=== PATIENT | male | born 1980 | race Caucasian/White ===

== ENCOUNTER 2016-04-28 16:52 | Emergency (ER) | payer OTHER ==
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
--- NOTE | 2016-04-29 02:45 | ED ORDER SUMMARY ---
..... Patient: LEENA SOLIS OrderSheet [facility] VisitID: [id number] [place] [address] 35y, M Registration Date/Time: 04/28/2016 ORDER SHEET Weight: 90.7 kg (estimated) Allergies: No Known Drug Allergy GENERAL ORDERS: CBC w Diff Urgent (17:04 04/28/2016 Lauro SALDAÑA) (Ack 17:13 Harrison) (17:16 NHouse ER Tech1) CMP Urgent (17:04 04/28/2016 Lauro SALDAÑA) (Ack 17:13 Harrison) (17:16 NHouse ER Tech1) UA-Culture if indicated Urgent (17:04 04/28/2016 Lauro SALDAÑA) (Ack 17:13 Harrison) (17:30 NHouse ER Tech1) Amylase Urgent (17:04 04/28/2016 Lauro SALDAÑA) (Ack 17:13 Harrison) (17:16 NHouse ER Tech1) Lipase Urgent (17:04 04/28/2016 Lauro SALDAÑA) (Ack 17:13 Harrison) (17:16 NHouse ER Tech1) Urine Drug Screen Urgent (17:04 04/28/2016 Lauro SALDAÑA) (Ack 17:13 Harrison) (17:30 NHouse ER Tech1) Salicylate Level Urgent (17:04 04/28/2016 Lauro SALDAÑA) (Ack 17:13 Harrison) (17:16 NHouse ER Tech1) Acetaminophen Level Urgent (17:04 04/28/2016 Lauro SALDAÑA) (Ack 17:14 Harrison) (17:16 NHouse ER Tech1) Suicide Precautions (17:04 04/28/2016 Lauro SALDAÑA) (17:05 Alex R.N.) Ethyl Alcohol Urgent (17:05 04/28/2016 Lauro SALDAÑA) (Ack 17:14 Harrison) (17:16 NHouse ER Tech1) MEDICATION ORDERS: IV FLUIDS: ORDER SHEET NOTES: [Electronically signed by Shashi Egan R.N. (02:58 04/29/2016)] [Electronically signed by Dino Verde Dr. (07:48 04/29/2016)] [Electronically locked/signed by Shashi Egan R.N. (02:58 04/29/2016)]
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
--- NOTE | 2016-04-29 02:45 | ED ORDER SUMMARY ---
..... Patient: LEENA SOLIS OrderSheet [facility] VisitID: [id number] [place] [address] 35y, M Registration Date/Time: 04/28/2016 ORDER SHEET Weight: 90.7 kg (estimated) Allergies: No Known Drug Allergy GENERAL ORDERS: CBC w Diff Urgent (17:04 04/28/2016 Lauro SALDAÑA) (Ack 17:13 Harrison) (17:16 NHouse ER Tech1) CMP Urgent (17:04 04/28/2016 Lauro SALDAÑA) (Ack 17:13 Harrison) (17:16 NHouse ER Tech1) UA-Culture if indicated Urgent (17:04 04/28/2016 Lauro SALDAÑA) (Ack 17:13 Harrison) (17:30 NHouse ER Tech1) Amylase Urgent (17:04 04/28/2016 Lauro SALDAÑA) (Ack 17:13 Harrison) (17:16 NHouse ER Tech1) Lipase Urgent (17:04 04/28/2016 Lauro SALDAÑA) (Ack 17:13 Harrison) (17:16 NHouse ER Tech1) Urine Drug Screen Urgent (17:04 04/28/2016 Lauro SALDAÑA) (Ack 17:13 Harrison) (17:30 NHouse ER Tech1) Salicylate Level Urgent (17:04 04/28/2016 Lauro SALDAÑA) (Ack 17:13 Harrison) (17:16 NHouse ER Tech1) Acetaminophen Level Urgent (17:04 04/28/2016 Lauro SALDAÑA) (Ack 17:14 Harrison) (17:16 NHouse ER Tech1) Suicide Precautions (17:04 04/28/2016 Lauro SALDAÑA) (17:05 Alex R.N.) Ethyl Alcohol Urgent (17:05 04/28/2016 Lauro SALDAÑA) (Ack 17:14 Harrison) (17:16 NHouse ER Tech1) MEDICATION ORDERS: IV FLUIDS: ORDER SHEET NOTES: [Electronically signed by Shashi Egan R.N. (02:58 04/29/2016)] [Electronically signed by Dino Verde Dr. (07:48 04/29/2016)] [Electronically locked/signed by Shashi Egan R.N. (02:58 04/29/2016)]
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
--- NOTE | 2016-04-29 07:49 | ED MED RECONCILIATION SUMMARY ---
Patient: LEENA SOLIS Medication Reconciliation Report [facility] VisitID: [id number] [place] [place] [address] 35y, M Registration Date/Time: 04/28/2016 Weight: 90.7 kg Height/Length: 72 in. BMI: 27.1 ALLERGIES: No Known Drug Allergy The patient's Home Medications are listed below: THE FOLLOWING MEDICATIONS NEED TO BE RECONCILED: Xanax Oral The source(s) of the original Home Medication information: patient The following Medications were given to the patient in the Emergency Department: None. The following Medications were prescribed to the patient: None.
--- NOTE | 2016-04-29 07:49 | ED MAR SUMMARY ---
..... Medication Administration Record [facility] [address] [place], [place] [id number] Patient: LEENA SOLIS Visit ID: [id number] 35y, M Weight: 90.7 kg Height/Length: 72 in BMI: 27.1 ALLERGIES: No Known Drug Allergy
--- NOTE | 2016-04-29 07:49 | ED MAR SUMMARY ---
..... Medication Administration Record [facility] [address] [place], [place] [id number] Patient: LEENA SOLIS Visit ID: [id number] 35y, M Weight: 90.7 kg Height/Length: 72 in BMI: 27.1 ALLERGIES: No Known Drug Allergy
--- NOTE | 2016-04-29 07:49 | ED DISCHARGE INSTRUCTIONS ---
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 Occasional substance abuse- marijuana, methamphetamines with drug induced mood disorder. INSTRUCTIONS Follow-up: Follow up with your doctor tomorrow as scheduled. ADDITIONAL INFORMATION Drug Abuse Use and abuse of such drugs as marijuana, amphetamines (speed, crank), cocaine, heroin or prescription pain medicines (Vicodin, codeine), sedatives and sleeping pills (Valium, Klonopin), PCP, mescaline and LSD may lead to addiction or dependence. Once this occurs, you are at greater risk for any of the following: Craving for the drug and unable to stop using the drug even though you think you want to stop (psychological dependence) Drug withdrawal symptoms if you stop taking the drug (physical dependence) Loss of your job or your family Arrest, conviction and retirement sentence for possession of an illegal substance or for driving under the influence of such a substance Accidental injuries to yourself or others while you are under the influence of the drug (in a car or at home). HIV infection (much greater risk if you use IV drugs) Other sexually transmitted diseases (herpes, chlamydia, gonorrhea and others) Severe and fatal infection of the heart valves (if you use IV drugs) Stroke, heart attack, hepatitis B or C, kidney failure from overdose Home Care: Admit you have a drug problem. Ask for help from your family and close friends. Seek professional help. This could be in the form of individual psychotherapy or counseling or an outpatient, inpatient, or residential drug treatment program. Join a self-help group for drug abuse. Avoid friends who abuse drugs themselves or tempt you to continue abusing drugs. Eat a balanced diet and begin a regular exercise program. Follow Up with your doctor or as advised by our staff. Contact one of the resources below for help. National [place] on Alcoholism and Drug Dependence www.ncadd.org 158-794-YXRY Narcotics Anonymous www.na.org 725-116-8957 National Alcohol and Substance Abuse Information Center (for referral to treatment programs) www.MeetBallcareFetise.com.[employer] 532-480-0072 Get Prompt Medical Attention if any of the following occur: Agitation, anxiety, unable to sleep Unintended weight loss (more than 10 to 15 pounds over 3 months) Seizure Chest pain Fever of 100.4F (38C) or higher, or as directed by your healthcare provider Excess drowsiness or inability to be awakened Shortness of breath Slow breathing under 8 breaths per minute Cough with colored sputum Redness, swelling or tenderness at an injection site You have been given the following additional information: Drug Abuse (Electronically signed by Dino Verde Dr. 04/29/2016 7:48)
--- NOTE | 2016-04-29 07:49 | ED DISCHARGE INSTRUCTIONS ---
Patient: LEENA SOLIS General Instructions 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 Occasional substance abuse- marijuana, methamphetamines with drug induced mood disorder. INSTRUCTIONS Follow-up: Follow up with your doctor tomorrow as scheduled. ADDITIONAL INFORMATION Drug Abuse Use and abuse of such drugs as marijuana, amphetamines (speed, crank), cocaine, heroin or prescription pain medicines (Vicodin, codeine), sedatives and sleeping pills (Valium, Klonopin), PCP, mescaline and LSD may lead to addiction or dependence. Once this occurs, you are at greater risk for any of the following: Craving for the drug and unable to stop using the drug even though you think you want to stop (psychological dependence) Drug withdrawal symptoms if you stop taking the drug (physical dependence) Loss of your job or your family Arrest, conviction and longterm sentence for possession of an illegal substance or for driving under the influence of such a substance Accidental injuries to yourself or others while you are under the influence of the drug (in a car or at home). HIV infection (much greater risk if you use IV drugs) Other sexually transmitted diseases (herpes, chlamydia, gonorrhea and others) Severe and fatal infection of the heart valves (if you use IV drugs) Stroke, heart attack, hepatitis B or C, kidney failure from overdose Home Care: Admit you have a drug problem. Ask for help from your family and close friends. Seek professional help. This could be in the form of individual psychotherapy or counseling or an outpatient, inpatient, or residential drug treatment program. Join a self-help group for drug abuse. Avoid friends who abuse drugs themselves or tempt you to continue abusing drugs. Eat a balanced diet and begin a regular exercise program. Follow Up with your doctor or as advised by our staff. Contact one of the resources below for help. National [place] on Alcoholism and Drug Dependence www.ncadd.org 815-277-JMGW Narcotics Anonymous www.na.org 175-233-0384 National Alcohol and Substance Abuse Information Center (for referral to treatment programs) www.MitraligncareKey Ring.[employer] for [employer] 472-120-2480 Get Prompt Medical Attention if any of the following occur: Agitation, anxiety, unable to sleep Unintended weight loss (more than 10 to 15 pounds over 3 months) Seizure Chest pain Fever of 100.4F (38C) or higher, or as directed by your healthcare provider Excess drowsiness or inability to be awakened Shortness of breath Slow breathing under 8 breaths per minute Cough with colored sputum Redness, swelling or tenderness at an injection site You have been given the following additional information: Drug Abuse (Electronically signed by Dino Verde Dr. 04/29/2016 7:48)
--- NOTE | 2016-04-29 07:49 | ED MED RECONCILIATION SUMMARY ---
Patient: LEENA SOLIS Medication Reconciliation Report [facility] VisitID: [id number] [place] [address] 35y, M Registration Date/Time: 04/28/2016 Weight: 90.7 kg Height/Length: 72 in. BMI: 27.1 ALLERGIES: No Known Drug Allergy The patient's Home Medications are listed below: THE FOLLOWING MEDICATIONS NEED TO BE RECONCILED: Xanax Oral The source(s) of the original Home Medication information: patient The following Medications were given to the patient in the Emergency Department: None. The following Medications were prescribed to the patient: None.
== END 2016-04-29 02:55 | disposition home or self-care (01) ==
LOC: ED SRH 16:52
DX: F15.14 Other stimulant abuse with stimulant-induced mood disorder (principal); F12.188 Cannabis abuse with other cannabis-induced disorder; F32.9 Major depressive disorder, single episode, unspecified; F17.210 Nicotine dependence, cigarettes, uncomplicated
CPT/HCPCS: 90004; 90100; 92010; 92235; 92530; 92760; 92761; 92762; 92763; 92764; 92765; 92766; 92767; 92780; 95059; 97000